=== PATIENT | male | born 1985 | race Caucasian/White ===

== ENCOUNTER 2023-07-11 20:43 | Emergency (ER) | payer OTHER ==
[~2023-07-11] VITALS: Ht 167.6 cm; Wt 79.8 kg
== END 2023-07-11 21:00 ==
LOC: MED 20:43
DX: Z02.89 Encounter for other administrative examinations (principal); V89.2XXA Person injured in unspecified motor-vehicle accident, traffic, initial encounter; Y93.89 Activity, other specified; Y92.410 Unspecified street and highway as the place of occurrence of the external cause; Y99.8 Other external cause status
CPT/HCPCS: 99283